=== PATIENT | female | born 1995 | race Caucasian/White ===

== ENCOUNTER 2017-12-16 19:20 | Emergency (ER) | payer SELFPAY ==
[2017-12-16 19:57] LABS: BILIRUBIN,URINE NEGATIVE (NEGATIVE); BLOOD/HEMOGLOBIN,URINE 2+ (NEGATIVE); GLUCOSE, URINE NEGATIVE (NEGATIVE); KETONES,URINE NEGATIVE (NEGATIVE); LEUKOCYTE ESTERASE ,URINE 3+ (NEGATIVE); NITRITES,URINE NEGATIVE (NEGATIVE); PH,URINE 6.5 (5.0 - 8.0); PROTEIN,URINE NEGATIVE (NEGATIVE); UROBILINOGEN,URINE NORMAL (NORMAL)
--- NOTE | 2017-12-16 20:02 | DR.GENAD ---
HPI - PCP Primary Care Physician: NFD - Complaint/Symptoms Chief Complaint Doctors Comments: Patient admits to lower abdominal pain associated with dysuria for one hour. 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 Self Treatment fo Chief Complaint: NONE - Source History Provided: Patient - Mode of Arrival Mode of Arrival: Ambulatory - Timing Onset of Chief Complaint: 12/16/17 PMH - PMH Past Medical History: Yes Past Medical History: Anxiety, Depression Past Surgical History: Yes Surgical History: Cholecystectomy - Family History History of Family Medical Conditions: Yes Family Medical History: Diabetes Mellitus, Cancer, Hypertension - Social History Does patient currently use any type of tobacco product: No Have you used tobacco products in the last 12 months: No Type of Tobacco Use: None Does any household member use tobacco: No Alcohol Use: None Do you use any recreational Drugs:: No Lives With: Family Lives Where: Home - infectious screening In the last 2 months have you had wt loss of >10#?: NO Have you had fever, night sweats or hemotysis?: No Have you traveled outside the country in the last 6 months?: No Isolation: Standard ROS - Review of Systems Eyes: No Symptoms Reported ENTM: No Symptoms Reported Respiratoy: No Symptoms Reported Cardiovascular: No Symptoms Reported Gastrointestinal/Abdominal: No Symptoms Reported Genitourinary: No Symptoms Reported Neurological: No Symptoms Reported Musculoskeletal: No Symptoms Reported Integumentary: No Symptoms Reported Hematologic/Lymphatic: No Symptoms Reported Endocrine: No Symptoms Reported Psychiatric: No Symptoms Reported All Other Systems: Reviewed and Negative PE - Vital Signs Vitals: Temperature 98.9 F Pulse Rate 92 Respiratory Rate 18 Blood Pressure 117/58 O2 Sat by Pulse Oximetry 99 - General Limitations: No Limitations General Appearance: Alert, In No Apparent Distress - Head Head Exam: Normal Inspection, Atraumatic - Eyes Eye exam: Normal Appearance, PERRL, EOMI - ENT ENT Exam: Normal Exam External Ear Exam: Normal External Inspection TM/Canal Exam: Bilateral Normal Nose Exam: Normal Nose Exam Mouth Exam: Normal Inspection Throat Exam: Normal Inspection - Neck Neck Exam: Normal Inspection, Full ROM - Chest Chest Inspection: Normal Inspection, Symmetric Chest Wall Rise - Respiratory Respiratory Exam: Normal Lung Sounds Bilat Respiratory Exam: Bilateral Clear to Auscultation - Cardiovascular Cardiovascular Exam: Regular Rate - Abdominal Exam Abdominal Exam: Normal Inspection, Normal Bowel Sounds Abdominal Tenderness: negative: RUQ, RLQ, LUQ, LLQ, Epigastrium, Suprapubic, Diffuse, Mild, Moderate, Severe, Other - Extremities Extremities Exam: Normal Inspection, Full ROM - Back Back Exam: Normal Inspection, Full ROM - Neurologic Neurological Exam: Alert, Oriented X3, CN II-XII Intact - Psychiatric Psychiatric Exam: Normal Affect, Normal Mood - Skin Skin Exam: Warm, Dry, Intact ROR - Labs Reviewed Laboratory: C-Reactive Protein 2.80 mg/L (0-3.0) 12/16/17 20:10 HCG, Qual Negative <10 mIU/mL 12/16/17 20:10 Specimen Type Clean catch urine 12/16/17 19:43 Urine Color Yellow (YELLOW) 12/16/17 19:43 Urine Appearance Hazy (CLEAR) 12/16/17 19:43 Urine pH 6.5 (5.0 - 8.0) 12/16/17 19:43 Ur Specific [place] 1.015 (1.000-1.030) 12/16/17 19:43 Urine Protein Negative (NEGATIVE) 12/16/17 19:43 Urine Glucose (UA) Negative (NEGATIVE) 12/16/17 19:43 Urine Ketones Negative (NEGATIVE) 12/16/17 19:43 Urine Occult Blood 2+ (NEGATIVE) 12/16/17 19:43 Urine Nitrite Negative (NEGATIVE) 12/16/17 19:43 Urine Bilirubin Negative (NEGATIVE) 12/16/17 19:43 Urine Urobilinogen Normal (NORMAL) 12/16/17 19:43 Ur Leukocyte Esterase 3+ (NEGATIVE) 12/16/17 19:43 Urine RBC 3-5 /HPF (NONE SEEN) 12/16/17 19:43 Urine WBC 5-10 /HPF (NONE SEEN) 12/16/17 19:43 Ur Squamous Epith Cells Numerous /HPF (NEGATIVE) 12/16/17 19:43 Urine Bacteria 2+ /HPF (NEGATIVE) 12/16/17 19:43 Ur Culture Indicated? Yes/culture set up 12/16/17 19:43 - Diagnosis Discharge Problem: UTI (urinary tract infection) Qualifiers: Urinary tract infection type: acute cystitis Hematuria presence: with hematuria Qualified Code(s): N30.01 - Acute cystitis with hematuria - Discharge Plan Condition: Stable - Follow ups/Referrals Follow ups/Referrals: NFD,None [Primary Care Provider] - 3 days - Instructions Instructions: Urinary Tract Infection, Adult
[2017-12-16 20:08] LABS: APPEARANCE,URINE HAZY (CLEAR); COLOR,URINE YELLOW (YELLOW)
[2017-12-16 20:09] LABS: BACTERIA,URINE 2+ /HPF (NEGATIVE); SQUAMOUS EPITHELIAL CELL,UR NUMEROUS /HPF (NEGATIVE)
[2017-12-16 20:27] LABS: SERUM PREGNANCY TEST, QUAL NEGATIVE <10 mIU/mL
--- NOTE | 2017-12-16 20:44 | RAD ---
Acute abdomen-three views Indication: Lower abdominal pain. Findings: Chest radiograph is normal. Heart size is normal. There is no free air or pneumatosis. Gas and stool are seen in the colon. No abnormal calcific densit ies seen. Cholecystectomy clips noted. Impression: No acute abnormality identified Reported By:
[2017-12-16 20:59] VITALS: BP 118/78
== END 2017-12-16 20:59 | disposition home or self-care (01) ==
LOC: ER 19:31
DX: N30.01 Acute cystitis with hematuria (principal)
CPT/HCPCS: 36415; 74022; 81001; 84703; 86140; 87086; 99282